=== PATIENT | male | born 1955 | race African-American/Black ===

== ENCOUNTER → 2016-12-25 | Outpatient (CLI) | payer BC ==
[~2016-12-25] MED LIST: FLEXERIL PO; HYDROCODON-ACE1 EAC7 PO; MEDROL PO
== END | disposition home or self-care (01) ==
LOC: CECH 12:44
DX: R06.02 Shortness of breath (principal); I10 Essential (primary) hypertension; R42 Dizziness and giddiness; I08.1 Rheumatic disorders of both mitral and tricuspid valves
CPT/HCPCS: 93306